=== PATIENT | male | born 1980 | race Caucasian/White ===

== ENCOUNTER 2022-01-03 15:36 | Emergency (ER) | payer OTHER ==
[~2022-01-03] VITALS: Ht 185.4 cm; Wt 127.0 kg
[2022-01-03 17:16] LABS: BASOPHILS % 0.8 % (0.0-2.0); HEMATOCRIT. 42.9 % (42.0-52.0); HEMOGLOBIN. 14.5 g/dL (14.0-18.0); LYMPHOCYTES % 16.3 % (20.0-50.0); MEAN CORPUSCULAR HEMOGLOBIN 29.5 pg (28.0-32.0); MEAN CORPUSCULAR VOLUME 87.4 fL (80.0-94.0); MEAN PLATELET VOLUME 7.9 fl (7.4-10.4); MONOCYTES % 7.2 % (2.0-8.0); NEUTROPHILS % 74.7 % (40.0-76.0); PLATELET 276 x1000/uL (130-400); RED BLOOD CELL COUNT 4.91 mill/uL (4.7-6.1); RED CELL DISTRIBUTION WIDTH 13.5 % (11.6-14.6)
[2022-01-03 17:25] LABS: CHLORIDE 105 mEq/L (98-107)
[2022-01-03] MEDS ORDERED: KETOROLAC 15MG/ML VIAL IM ONE (19:15)
[2022-01-03 19:45] VITALS: BP 160/97
== END 2022-01-03 19:49 | disposition home or self-care (01) ==
LOC: ER 15:55
DX: R51.9 Headache, unspecified (principal); R07.89 Other chest pain; V49.49XA Driver injured in collision with other motor vehicles in traffic accident, initial encounter; Y93.89 Activity, other specified; Y92.89 Other specified places as the place of occurrence of the external cause; Y99.8 Other external cause status
CPT/HCPCS: 36415; 71045; 71120; 80053; 84484; 85025; 93005; 99285